=== PATIENT | female | born 1990 | race African-American/Black ===

== ENCOUNTER 2017-11-21 00:11 | Emergency (ER) | payer OTHER ==
[~2017-11-21] VITALS: Ht 157.5 cm; Wt 74.3 kg
[~2017-11-21 00:11] MED LIST: BENTYL10 MG PO; ELIMITE 5% CREA60 GM TP; NOHOMEMEDS; ZOFRAN4 MG PO; [UNRECOGNIZED DRUG - REMARK]
[2017-11-21] MEDS ORDERED: AMOXICILLIN500 MG PO (02:16)
[2017-11-21 02:53] VITALS: BP 104/76
== END 2017-11-21 02:53 | disposition home or self-care (01) ==
LOC: EME 00:11
PROVIDERS: Emergency Medicine
DX: J02.0 Streptococcal pharyngitis (principal)
CPT/HCPCS: 81003; 87502; 87651 90; 99281; 99284